=== PATIENT | female | born 1985 | race Caucasian/White ===

== ENCOUNTER 2017-10-27 13:17 | Emergency (ER) | payer MEDICAID ==
[~2017-10-27] VITALS: Ht 165.1 cm; Wt 61.2 kg
[2017-10-27 13:20] VITALS: BP 127/77
== END 2017-10-27 13:55 | disposition home or self-care (01) ==
LOC: ER 13:25
DX: R21 Rash and other nonspecific skin eruption (principal); F17.200 Nicotine dependence, unspecified, uncomplicated
CPT/HCPCS: 99283; A4606; Z7610

== ENCOUNTER 2018-03-15 12:50 | Emergency (ER) | payer MEDICAID, OTHER ==
[~2018-03-15] VITALS: Ht 165.1 cm; Wt 53.5 kg
[2018-03-15 12:55] VITALS: BP 114/66
[2018-03-15] MEDS ORDERED: LIDOCAINE HCL/PF 1% 30 ML VIAL TP ONE (13:30)
== END 2018-03-15 14:07 | disposition home or self-care (01) ==
LOC: ER 12:59
DX: O26.891 Other specified pregnancy related conditions, first trimester (principal); L02.414 Cutaneous abscess of left upper limb; Z3A.08 8 weeks gestation of pregnancy; F17.200 Nicotine dependence, unspecified, uncomplicated
CPT/HCPCS: A4606; A6402; A6407; J3490; Z7610